=== PATIENT | female | born 1970 | race Caucasian/White ===

== ENCOUNTER 2016-08-06 11:05 | Emergency (ER) | payer OTHER ==
[2016-08-06 11:19] VITALS: PULSE 71; RESP 16; TEMP 97.5; O2SAT 98
--- NOTE | 2016-08-06 11:35 | UCPHY ---
H & P Patient Type: Established Chief Complaint Nursing Narrative: pt finished run this AM and started coughing hard and felt a "pop" in thoracic back rib area. now is having trouble taking deep breath. congestion/cough/fatigue in past few days. Time Seen by Provider: 08/06/16 11:20 HPI/ROS: Chief complaint: Back pain HPI: 35-year-old woman was exercising this morning, went for a run, came back and had a coughing fit. After that started developing some gradually worsening pain in her right upper back. Patient states that feels like it is deep in her lungs. She has had a history of similar in the past was diagnosed with pneumonia. Patient states she has been having a dry cough which is consistent with some allergies. States that it does hurt to take a deep breath. She does have a relatively sedentary job but is quite active otherwise. No recent travel. No leg pain or swelling. No shortness of breath. No central chest pain. She has not have any pain at rest. ROS: 10 point Review of Systems is negative except as noted in the HPI. PMH: IgG deficiency Medications none Allergies none Social History: No smoking, occasional alcohol, no recreational drug use Family History: Unknown as she is adopted Physical Exam: Gen: Awake, Alert, No Distress HEENT: Nose: no rhinorrhea Eyes: PERRLA, EOMI Mouth: Moist mucosa Neck: Supple, no JVD Chest: nontender, lungs clear to auscultation Heart: S1, S2 normal, no murmur Abd: Soft, non-tender, no guarding Back: no CVA tenderness, no midline tenderness Ext: no edema, non-tender Skin: no rash Neuro: CN II-XII intact, Sensation grossly intact, Strength 5/5 in bilateral upper and lower extremities - Personal History LMP (Females 10-55): 1-7 Days Ago Current Tetanus Diphtheria and Acellular Pertussis (TDAP): Yes - Medical/Surgical History Hx Asthma: No Hx Chronic Respiratory Disease: No Hx Diabetes: No Hx Cardiac Disease: No Hx Renal Disease: No Hx Cirrhosis: No Hx Alcoholism: No Hx HIV/AIDS: No Hx Splenectomy or Spleen Trauma: No Other PMH: ?workup for autoimmune disease, kidney sx as baby - Family History Significant Family History: No pertinent family hx - Social History Smoking Status: Never smoked Constitutional: Initial Vital Signs Temperature (C) 36.4 C 08/06/16 11:16 Heart Rate 71 08/06/16 11:16 Respiratory Rate 16 08/06/16 11:16 Blood Pressure 153/93 H 08/06/16 11:16 O2 Sat (%) 98 08/06/16 11:16 O2 Delivery Mode Room Air Allergies/Adverse Reactions: ciprofloxacin [From Cipro] Allergy (Verified 08/06/16 11:15) Rash ciprofloxacin HCl [From Cipro] Allergy (Verified 08/06/16 11:15) Rash Home Medications: Medication Instructions Recorded NK [No Known Home Meds] 08/06/16 Medical Decision Making - Diagnostics Imaging: Chest x-ray: No acute abnormality per Dr. Araujo ED Course/Re-evaluation: Chest x-ray is negative. CBC, D-dimer, chemistry are entirely normal. There is acute pulmonary process. Symptoms are likely secondary to a thoracic some chest wall strain. Lungs are clear. Will discharge with instructions to alternate ibuprofen and acetaminophen. Ice as necessary. Follow up with primary care physician in about a week. - Data Points Laboratory Results: Laboratory Results 08/06/16 11:45 08/06/16 11:45 08/06/16 08/06/16 08/06/16 11:45 11:45 11:45 WBC 6.62 10^3/uL 10^3/uL (3.80-9.50) RBC 4.69 10^6/uL 10^6/uL (4.18-5.33) Hgb 15.3 g/dL g/dL (12.6-16.3) Hct 42.8 % % (38.0-47.0) MCV 91.3 fL fL (81.5-99.8) MCH 32.6 pg pg (27.9-34.1) MCHC 35.7 g/dL g/dL (32.4-36.7) RDW 12.5 % % (11.5-15.2) Plt Count 258 10^3/uL 10^3/uL (150-400) MPV 9.8 fL fL (8.7-11.7) Neut % (Auto) 61.9 % % (39.3-74.2) Lymph % (Auto) 29.6 % % (15.0-45.0) [place] % (Auto) 5.1 % % (4.5-13.0) Eos % (Auto) 2.6 % % (0.6-7.6) Baso % (Auto) 0.6 % % (0.3-1.7) Nucleat RBC Rel Count 0.0 % % (0.0-0.2) Absolute Neuts (auto) 4.10 10^3/uL 10^3/uL (1.70-6.50) Absolute Lymphs (auto) 1.96 10^3/uL 10^3/uL (1.00-3.00) Absolute Monos (auto) 0.34 10^3/uL 10^3/uL (0.30-0.80) Absolute Eos (auto) 0.17 10^3/uL 10^3/uL (0.03-0.40) Absolute Basos (auto) 0.04 10^3/uL 10^3/uL (0.02-0.10) Absolute Nucleated RBC 0.00 10^3/uL 10^3/uL (0-0.01) Immature Gran % 0.2 % % (0.0-1.1) Immature Gran # 0.01 10^3/uL 10^3/uL (0.00-0.10) D-Dimer < 0.27 ug/mLFEU ug/mLFEU (0.00-0.50) Sodium 143 mEq/L mEq/L (134-144) Potassium 3.8 mEq/L mEq/L (3.5-5.2) Chloride 102 mEq/L mEq/L (97-110) Carbon Dioxide 25 mEq/l mEq/l (22-31) Anion Gap 16 mEq/L mEq/L (8-16) BUN 12 mg/dL mg/dL (7-23) Creatinine 0.6 mg/dL mg/dL (0.6-1.0) Estimated GFR > 60 Glucose 87 mg/dL mg/dL (70-100) Calcium 9.7 mg/dL mg/dL (8.5-10.4) Departure - Departure Disposition: Home, Routine, Self-Care Clinical Impression: Chest wall injury Condition: Good Instructions: Thoracic Pain (ED), Chest Wall Pain (ED) Additional Instructions: Alternate ibuprofen with acetaminophen every 4 hours as needed for aches and pains. May apply ice for 15 minutes for every hour while awake. Follow up with primary care physician about a week. Referrals: NONE *PRIMARY CARE P,. [Primary Care Provider] - As per Instructions Odessa Sim MD [[facility] [place] Primary Care Provider] - As per Instructions - PQRS PQRS Measurement: NA
[2016-08-06 11:50] LABS: % IMMATURE GRANULYOCYTES 0.2 % (0.0-1.1); ABSOLUTE IMMATURE GRANULOCYTES 0.01 10^3/uL (0.00-0.10); ADD DIFF? NO; ADD MORPH? NO; ADD SCAN? NO; ATYPICAL LYMPHOCYTE FLAG 10 (0-99); FRAGMENT RBC FLAG 0 (0-99); HEMATOCRIT 42.8 % (38.0-47.0); HEMOGLOBIN 15.3 g/dL (12.6-16.3); LEFT SHIFT FLG 0 (0-99); LIPEMIA HEMOLYSIS FLAG 90 (0-99); MEAN CELL HEMOGLOBIN 32.6 pg (27.9-34.1); MEAN CELL HEMOGLOBIN CONCENTR. 35.7 g/dL (32.4-36.7); MEAN CELL VOLUME 91.3 fL (81.5-99.8); MEAN PLATELET VOLUME 9.8 fL (8.7-11.7); PLATELET CLUMPS FLAG 20 (0-99); PLATELET COUNT 258 10^3/uL (150-400); RED BLOOD CELL COUNT 4.69 10^6/uL (4.18-5.33); RED CELL DISTRIBUTION WIDTH 12.5 % (11.5-15.2)
[2016-08-06 12:05] LABS: ANION GAP 16 mEq/L (8-16); CALCIUM 9.7 mg/dL (8.5-10.4); CARBON DIOXIDE 25 mEq/l (22-31); CHLORIDE 102 mEq/L (97-110); CREATININE 0.6 mg/dL (0.6-1.0); GLOMERULAR FILTRATION RATE > 60; GLUCOSE 87 mg/dL (70-100); POTASSIUM 3.8 mEq/L (3.5-5.2); SODIUM 143 mEq/L (134-144)
[2016-08-06 12:37] VITALS: BP 143/91
== END 2016-08-06 12:37 | disposition home or self-care (01) ==
LOC: CED 11:05
DX: S20.309A Unspecified superficial injuries of unspecified front wall of thorax, initial encounter (principal); R05 Cough; X58.XXXA Exposure to other specified factors, initial encounter
CPT/HCPCS: 71020-PO; 80048-PO; 85025-PO; 85378-PO; 99214-PO; G0463-PO